=== PATIENT | male | born 1985 | race African-American/Black ===

== ENCOUNTER 2021-07-22 20:53 | Emergency (ER) | payer OTHER, SELFPAY ==
[~2021-07-22] VITALS: Ht 185.4 cm; Wt 97.7 kg
[2021-07-22] MEDS ORDERED: FAMO20 PO (22:38)
[2021-07-22] MEDS ORDERED: FLUT1AER4 IH (22:38)
[2021-07-22] MEDS ORDERED: TRAZODONE PO (22:38)
[2021-07-22 22:54] LABS: COVID AG,FIA SOURCE NASOPHARYNGEAL
[2021-07-22 23:09] LABS: BASOPHILS % (AUTO) 0.6 % (0.0-2.0); EOSINOPHILS % (AUTO) 0.2 % (1.0-6.0); HEMATOCRIT 46.9 % (41-53); HEMOGLOBIN 16.3 g/dL (13.5-17.5); LYMPHOCYTES # (AUTO) 1.3 K/uL (1.0-4.8); LYMPHOCYTES % (AUTO) 11.4 % (22.0-44.0); MEAN CORPUSCULAR HEMOGLOBIN 31.5 pg (26.0-34.0); MEAN CORPUSCULAR HGB CONC 34.7 G/dL (31.0-37.0); MEAN CORPUSCULAR VOLUME 91 fL (80-100); MONOCYTES # (AUTO) 0.4 K/uL (0.1-1.0); NEUTROPHILS # (AUTO) 9.2 K/uL (1.8-7.7); NEUTROPHILS % (AUTO) 83.8 % (40.0-70.0); PLATELET COUNT (AUTO) 223 K/uL (150-450); RED BLOOD CELL COUNT(AUTO) 5.17 MIL/uL (4.50-5.90); RED CELL DISTRIBUTION WIDTH 14.2 % (11.5-14.5)
[2021-07-22 23:16] LABS: ANION GAP 5 mmol/L (8-16); CALCIUM, TOTAL 9.2 mg/dL (8.8-10.5); CARBON DIOXIDE 28 mmol/L (22-29); CHLORIDE 102 mmol/L (98-107); CREATININE 1.32 mg/dL (0.60-1.30); GLOMERULAR FILTR. RATE CALC > 60 mL/min (>60); GLUCOSE,RANDOM 96 mg/dL (70-110); POTASSIUM 4.1 mmol/L (3.5-5.1); SODIUM SERUM 135 mmol/L (136-145); UREA NITROGEN, BLOOD 11 mg/dL (7-18)
[2021-07-22 23:23] LABS: ALANINE AMINOTRANSFERASE 34 U/L (12-78); ALBUMIN 3.9 g/dL (3.4-5.0); ALKALINE PHOSPHATASE 62 U/L (46-116); ASPARTATE AMINOTRANSFERASE 21 U/L (15-37); BILIRUBIN,TOTAL 0.3 mg/dL (0.1-1.0)
[2021-07-23] MEDS ORDERED: IBUPROFEN 600 MG TABLET PO ONE (00:15)
[2021-07-23] MEDS ORDERED: HydrOXYzine HCL 25 MG TABLET PO ONE (00:15)
[2021-07-23 00:16] VITALS: BP 139/86
== END 2021-07-23 00:30 ==
LOC: EMS 20:58
DX: M25.552 Pain in left hip (principal); F41.9 Anxiety disorder, unspecified; K21.9 Gastro-esophageal reflux disease without esophagitis; F20.9 Schizophrenia, unspecified; F17.210 Nicotine dependence, cigarettes, uncomplicated; F12.90 Cannabis use, unspecified, uncomplicated; Z20.822 Contact with and (suspected) exposure to COVID-19
CPT/HCPCS: 36415; 80053; 85025; 87426; 93005; 99283; G0480